=== PATIENT | male | born 1990 | race Caucasian/White ===

== ENCOUNTER 2017-03-23 22:40 | Emergency (ER) | payer SELFPAY ==
[~2017-03-23] VITALS: Ht 172.7 cm; Wt 68.0 kg
[2017-03-23 22:44] VITALS: BP 102/70
== END 2017-03-24 00:28 | disposition left against medical advice (07) ==
LOC: ER 22:54
DX: R41.82 Altered mental status, unspecified (principal)
CPT/HCPCS: 99283; Z7610